=== PATIENT | male | born 1970 | race Caucasian/White ===

== ENCOUNTER 2016-09-06 11:03 | Emergency (ER) | payer MEDICARE | END 2016-09-06 14:12 | disposition home or self-care (01) | LOC: ER 11:03 | DX: J18.9 Pneumonia, unspecified organism (principal); E87.6 Hypokalemia; I10 Essential (primary) hypertension; J45.909 Unspecified asthma, uncomplicated; E05.90 Thyrotoxicosis, unspecified without thyrotoxic crisis or storm; F17.210 Nicotine dependence, cigarettes, uncomplicated; Z79.899 Other long term (current) drug therapy; Z88.0 Allergy status to penicillin | CPT/HCPCS: 36415; 87502; 87651; 96365 ==

== ENCOUNTER 2016-09-25 13:49 | Emergency (ER) | payer MEDICARE | END 2016-09-25 20:40 | LOC: ER 13:49 | DX: N17.9 Acute kidney failure, unspecified (principal); I95.9 Hypotension, unspecified; F41.9 Anxiety disorder, unspecified; F31.9 Bipolar disorder, unspecified; I10 Essential (primary) hypertension; F17.210 Nicotine dependence, cigarettes, uncomplicated; Z79.899 Other long term (current) drug therapy; Z88.0 Allergy status to penicillin | CPT/HCPCS: 36415; 96361; 96365; J2704 ==

== ENCOUNTER 2016-10-26 17:47 | Emergency (ER) | payer MEDICARE | END 2016-10-26 20:10 | disposition home or self-care (01) | LOC: ER 17:47 | DX: G44.209 Tension-type headache, unspecified, not intractable (principal); I10 Essential (primary) hypertension; F41.9 Anxiety disorder, unspecified; F31.9 Bipolar disorder, unspecified; E07.9 Disorder of thyroid, unspecified; F17.210 Nicotine dependence, cigarettes, uncomplicated; Z88.0 Allergy status to penicillin; Z79.899 Other long term (current) drug therapy | CPT/HCPCS: 96372; J1885 ==